=== PATIENT | female | born 1930 | race Caucasian/White ===

== ENCOUNTER 2018-01-22 11:12 | Inpatient (IN) | payer MEDICARE, MEDICAID ==
--- NOTE | 2018-01-22 11:47 | ED Physician Chart ---
ED Chief Complaint/HPI - Patient Information Date Seen:: 01/22/18 Time Seen:: 11:45 Chief Complaint:: GENERALIZED WEAKNESS ABNORMAL LABS History of Present Illness:: THE PATIENT IS NONCOMMUNICATIVE AND UNABLE TO PROVIDE ANY FURTHER INFORMATION EMS WHO BROUGHT THE PATIENT TO THE HOSPITAL AND THE WERE OUR ONLY SOURCE OF INFORMATION. Allergies:: Allergies Allergy/AdvReac Type Severity Reaction Status Date / Time No Known Allergies Allergy Verified 01/22/18 11:22 THIS 87 YEAR OLD FEMALE WAS SENT TO THE [facility]ICE FOR ALTED MENTAL STATS . PT SEEMS AWAKE AND ALERT AD. Vitals:: Vital Signs - 8 hr 01/22/18 11:23 Temp 97.5 F HR 87 RR 18 BP 164/85 O2 Sat % 97 Historian:: EMS Review:: Nurse's Note Reviewed, Transfer documents Reviewed, Patient unable to respond, No other information ED Review of Systems - Review of Systems General/Constitutional: No fever, No chills, Other (UNABLE TO OBTAINDID YOU LACK COMMUNICATION.) Skin: No skin lesions, No bruising Head: No headache, No light-headedness Eyes: No loss of vision ENT: No earache, No sore throat Neck: No stiffness Cardio Vascular: No PND Pulmonary: No SOB, No cough, No sputum GI: No nausea, No vomiting, No diarrhea, No pain, No melena, No hematochezia, No constipation, No hematemesis G/U: No dysuria, No frequency, No hematuria ED Physical Exam - Physical Examination General/Constitutional: Awake, Well-developed, well-nourished, Alert, No distress, Non-toxic appearing, Ambulatory Head: Atraumatic Eyes: Lids, conjuctiva normal, PERRL Other Eyes comments:: PATIENT UNABLE TO UNDERSTANDTHE EOM EXAMINATION. Skin: No rash, No skin lesions, No ecchymosis, No lymphadenopathy ENMT: TM canals nl, Nasal exam nl, Tonsils nl Other ENMT comments:: REDENTOR'S WITH NO PLATES. Neck: No JVD, No nuchal rigidity, No mass, No stridor Respiratory: Nl effort/Exclusion, Clear to Auscultation, No Wheeze/Rhonchi/Rales Cardio Vascular: RRR, No murmur, gallop, rubs, NL S1 S2, Carotid/Femoral/Distal pulses equal bilaterally GI: No organomegaly, No hernia, Normal BS's : No CVA tenderness, No discharge Extremities: No tenderness or effusion, Full ROM, No edema, Normal digits & nails Other Extremities comments:: GENERALIZED WEAKNESS THROUGHOUT THE PATIENTS BODY. Neuro/Psych: Mood normal ED Labs/Radiology/EKG Results - Lab Results Results: Laboratory Tests 01/22/18 01/22/18 12:54 12:54 Whole Bld Lactic Acid 1.13 Troponin I 0.01 THE UA FROM 01/23/2028 SHOWED MANY BACTERIA THE LACTIC ACID WAS LESS THAN 2 NO OTHER LAB DATA IS AVAILALE. ED Assessment - Assessment General Assessment: THIS 87 YEAR OLD FEMALE WAS TRANSFERRED TO THE ER FROM HER NURSING FACILITY. SHE WAS NONCOMUNICAL HER [HYSICAL EXAM WAS UNREMARKABLE AND SHE HAD MANY BCTERIA IN HER URINE. SHE WAS TREATED WITH 2 GRAMS OF CEFTRIAXONE AND IV FLUIDS. SHE WAS ADMITTED TO DR RICHTER'S SERVICE WITH A DX of GENERALIZEDWEEKNESS SECONDAR TO A URI IN STABLE CONDITION. ED Septic Shock - . Is Septic Shock (SBP<90, OR Lactate>4 mmol\L) present?: No - <6hrs of presentation: Vital Signs: Vital Signs - 8 hr 01/22/18 11:23 Temp 97.5 F HR 87 RR 18 BP 164/85 O2 Sat % 97 ED Reassessment (Disposition) - Reassessment Reassessment Condition:: Unchanged, Improved - Diagnosis Diagnosis:: GENERALIZED WEAKNESS, URINARY TRACT INFECTION. - Aftercare/Follow up Instructions Aftercare/Follow-Up Instructions:: Counseled pt & family regarding lab results/ diagnosis & need follow up - Patient Disposition Discharge/Transfer:: Acute Care w/in this hosp ED Discharge Plan - Patient Disposition Admit/Discharge/Transfer: Other Care w/in this hosp
[2018-01-22] MEDS ORDERED: Sodium Chloride 0.9% 2,000 ML IV ONE (14:09)
[2018-01-22 14:58] LABS: URINE MICROSCOPIC INDICATED? YES; URINE SOURCE RANDOM
[2018-01-22 14:59] LABS: URINE BILIRUBIN NEGATIVE (NEGATIVE); URINE BLOOD TRACE (NEGATIVE); URINE GLUCOSE (UA) NEGATIVE (NEGATIVE); URINE KETONE NEGATIVE (NEGATIVE); URINE LEUKOCYTE ESTERASE NEGATIVE (NEGATIVE); URINE NITRATE POSITIVE (NEGATIVE); URINE PROTEIN NEGATIVE (NEGATIVE); URINE UROBILINOGEN 0.2 E.U./dL (0.2 - 1.0)
[2018-01-22 15:04] LABS: URINE CLARITY CLOUDY (CLEAR); URINE COLOR STRAW
[2018-01-22 15:06] LABS: % BASOPHILS 0.2 % (0.0-2.0); % EOSINOPHILS 3.1 % (0.0-5.0); % LYMPHOCYTES 23.6 % (20.0-50.0); % NEUTROPHILS 64.1 % (40.0-80.0); EOSINOPHILE ABSOLUTE 0.2 Th/cmm (0.1-0.4); HEMATOCRIT 43.1 % (41.0-60); HEMOGLOBIN 14.1 gm/dL (12-16); LYMPHOCYTE ABSOLUTE 1.2 Th/cmm (1.5-3.0); MEAN CELL VOLUME 90.4 fl (81-100); MEAN CORPUSCULAR HEMOGLOBIN 29.6 pg (27.0-31.0); MEAN CORPUSCULAR HGB CONC 32.8 pg (28.0-36.0); MEAN PLATELET VOLUME 9.3 fl; MONOCYTE ABSOLUTE 0.5 Th/cmm (0.3-1.0); NEUTROPHILE ABSOLUTE 3.3 Th/cmm (1.8-8.0); PLATELET COUNT 194 Th/cmm (150-400); RED BLOOD COUNT 4.77 Mil/cmm (3.80-5.20); RED CELL DISTRIBUTION WIDTH 15.3 % (11.5-20.0); WHITE BLOOD COUNT 5.2 Th/cmm (4.8-10.8)
[2018-01-22 15:08] LABS: URINE BACTERIA MODERATE /hpf (NONE SEEN); URINE EPITHELIAL CELLS NONE SEEN /lpf (FEW); URINE RBC 0-2 /hpf (0-5); URINE WBC NONE SEEN /hpf (0-5)
[2018-01-22 15:09] LABS: URINE AMORPHOUS SEDIMENT MANY PHOSPHATES (NONE SEEN)
[2018-01-22 15:15] LABS: ALB/GLOB RATIO 1.6 (1.0-1.8); ALBUMIN 3.9 gm/dL (3.7-5.3); ALKALINE PHOSPHATASE 85 U/L (34-104); ANION GAP 11.1 (7.0-16.0); BILIRUBIN,TOTAL 0.4 mg/dL (0.3-1.0); BUN - UREA NITROGEN 32 mg/dL (7-25); CALCIUM SERUM 9.3 mg/dL (8.6-10.3); CARBON DIOXIDE 27.1 mEq/L (21.0-31.0); CHLORIDE 106 mEq/L (98-107); CREATININE - SERUM 0.9 mg/dL (0.6-1.2); GLUCOSE 86 mg/dL (70-105); POTASSIUM SERUM 4.2 mEq/L (3.5-5.1); SGOT 23 U/L (13-39); SGPT/ALT 16 U/L (7-52); SODIUM SERUM 140 mEq/L (136-145); TOTAL PROTEIN,SERUM 6.4 gm/dL (6.0-8.3)
[2018-01-22] MEDS ORDERED: Maalox 30 mL Cup PO PRN (17:07)
[2018-01-22] MEDS ORDERED: Magnesium Hydroxide (MOM) 30 mL UDC PO PRN (17:07)
[2018-01-22 18:39] VITALS: BP 121/70
[2018-01-23] MEDS: Multivitamin Tab PO SCH (09:52)
[2018-01-23] MEDS ORDERED: Haloperidol Lactate 5 mg/mL 1mL Vial IM ONE (13:30)
[2018-01-23] MEDS ORDERED: Haloperidol Lactate 5 mg/mL 1mL Vial ONE (13:32)
--- NOTE | 2018-01-23 22:02 | History & Physical ---
ADMIT DATE: 01/22/2018 CHIEF COMPLAINT: Painful urination, severe weakness, and confusion. HISTORY OF PRESENT ILLNESS: The patient is an 87-year-old female admitted from Emergency Room to [facility]. The patient started to complain of severe weakness, lower abdominal pain with dysuria and the labs revealed urinary tract infection. The patient has failure to thrive, poor p.o. intake at the long-term and she is definitely more confused than her baseline status. Additionally, the patient also had acute psychosis. The patient is therefore admitted to Geropsych Unit. In the Emergency Room, the patient's UA revealed moderate bacteria, positive nitrite. Urine culture ordered and empiric antibiotics started which will be adjusted accordingly. PAST MEDICAL HISTORY: Including anxiety, depression, Alzheimer disease, insomnia, degenerative disk disease and mild psychosis. REVIEW OF SYSTEMS: Cannot be reliably obtained. PHYSICAL EXAMINATION: GENERAL: Well-developed female in no acute distress. SKIN: Warm and dry. VITAL SIGNS: Basically stable. HEENT: Normocephalic, atraumatic. Pupils equal, round, react to light and accommodation. CHEST: Symmetrical. LUNGS: Clear to auscultation bilaterally. HEART: Normal sinus rhythm, S1 __. ABDOMEN: Benign, soft, nontender. EXTREMITIES: No clubbing, cyanosis, edema bilaterally, 2+. NEUROLOGIC: Unremarkable. LABORATORY DATA: Reviewed. ASSESSMENT AND PLAN: 1. Urinary tract infection: Urine C and S ordered, empiric antibiotics started, which will be adjusted accordingly. 2. Altered level of consciousness due to metabolic encephalopathy and dementia. 3. Acute psychosis: Psychiatry consultation requested and greatly appreciated. 4. Failure to thrive: Multifactorial. Workup in progress. 5. Alzheimer disease: Continue Aricept. 6. Agitation and anxiety: Observe closely. Adjust medication as needed. 7. Gastroesophageal reflux disease: We will adjust medications as needed. 8. Deep venous thrombosis prophylaxis. [facility]# [id number]
--- NOTE | 2018-01-24 04:51 | Psychosocial Evaluation ---
DATE OF SERVICE: 01/23/2018 PSYCHIATRIC INITIAL EVALUATION AND MENTAL STATUS EXAM AGE: 87. SEX: Female. PHYSICIAN: Dr. Galindo. CHIEF COMPLAINT: Altered level of consciousness and confusion. HISTORY OF PRESENT ILLNESS: The patient is an 87-year-old female who was transferred to the hospital from [facility] because of confusion and episodes of agitation. The patient has diagnosis of dementia as well as hypertension. The patient also found to have urinary tract infection and she started on Rocephin. The patient is apparently confused. She does not know where she is. She also at times seems to be talking to herself in Australian language. The patient also has episodes of irritability and anger. The patient is also cooperative in regard to taking her medications. PAST PSYCHIATRIC HISTORY: The patient has a history of dementia, but no other major psychiatric issues or problems. PAST MEDICAL HISTORY: The patient has currently urinary tract infection. SOCIAL HISTORY: The patient lives in [facility]. No known alcohol or street drug use. ALLERGIES: No known allergies. MENTAL STATUS EXAMINATION: The patient appears her stated age. Anxious. Confused. Mumbling and talking to herself in Australian language and difficulty to understand directions or instructions. The patient is alert, but disoriented to time, place, person and situation and she could not even know her date. Poor insight and poor judgment. ASSESSMENT: PRIMARY DIAGNOSIS: Unspecified psychosis. SECONDARY DIAGNOSIS: Dementia, moderate to severe, with psychotic features. TREATMENT PLAN: We will monitor the patient's behavior and condition closely. Also, start the patient on Aricept and will adjust the dose. ESTIMATED LENGTH OF STAY: 5-7 days. TREATMENT PLAN: Continue to monitor her behavior. Also, we will return her to [place] when medically stable. CRITERIA FOR DISCHARGE: The patient will not be agitated or psychotic and will stabilize psychotropic medications and will establish outpatient treatment plans. [facility]# [id number]
[2018-01-24] MEDS: Sulfamethoxazole/TMP 800/160mg Tab PO SCH ×2 (10:56→17:35)
[2018-01-24] MEDS ORDERED: Probiotic Screen MC PRN (12:01)
--- NOTE | 2018-01-24 13:35 | Progress Notes ---
DATE: 01/23/2018 SUBJECTIVE: The patient is somewhat confused, afebrile. OBJECTIVE: VITAL SIGNS: Basically stable. HEENT: Normocephalic, atraumatic. Pupils equal, round, react to light and accommodation. CHEST: Symmetrical. LUNGS: Clear to auscultation bilaterally. HEART: Normal sinus rhythm. S1, S2. ABDOMEN: Benign, soft, nontender. EXTREMITIES: No clubbing, cyanosis or edema. Bilaterally 2+ equally. NEUROLOGIC: Unremarkable. LABORATORY AND DIAGNOSTIC DATA: Lab reviewed. ASSESSMENT AND PLAN: 1. Urinary tract infection: Pending final culture result. Empiric antibiotics started which will be adjusted accordingly. 2. Altered level of consciousness due to metabolic encephalopathy and dementia. 3. Alzheimer disease: Continue Aricept. 4. Psychosis: Adjust medication. 5. Anxiety: Observe closely. 6. Failure to thrive: Workup in progress. 7. Difficulty walking: Fall precaution and physical therapy. 8. DVT prophylaxis. JOB# [id number]
[2018-01-24] MEDS: Lactobacillus Rhamnosus GG 15 Billion CFU CAP.SPRINK PO SCH (17:33)
[2018-01-24] MEDS: Multivitamin Tab PO SCH (17:33)
--- NOTE | 2018-01-25 08:16 | Progress Notes ---
DATE: SUBJECTIVE: Chart reviewed and the patient interviewed. Also discussed the patient's condition with the staff and reviewed records and labs. The patient continued to be in angry and in irritable mood. The patient also is easily agitated and easily irritable. Yesterday, the patient was yelling and screaming at staff and the patient was threatening staff and aggressive and was not able to follow any of the directions. The patient had to be given Haldol, Ativan and Benadryl on emergency basis in order to calm her down. The patient is still irritable and agitated. ASSESSMENT: The patient is still confused and is still agitated and can be dangerous to others. TREATMENT PLAN: Continue to monitor her behavior and her condition closely. Also, we will start Seroquel in a dose of 12.5 mg twice a day and we will continue to follow up closely. JOB# [id number]
[2018-01-25] MEDS: Sulfamethoxazole/TMP 800/160mg Tab PO SCH ×2 (09:00→16:44)
[2018-01-25] MEDS: Multivitamin Tab PO SCH (09:25)
[2018-01-25] MEDS: Lactobacillus Rhamnosus GG 15 Billion CFU CAP.SPRINK PO SCH (09:25)
[2018-01-25] MEDS ORDERED: Haloperidol Lactate 5 mg/mL 1mL Vial IM ONE (10:00)
[2018-01-25] MEDS ORDERED: Haloperidol Lactate 5 mg/mL 1mL Vial ONE (14:40)
--- NOTE | 2018-01-25 23:33 | Progress Notes ---
DATE: 01/24/2018 SUBJECTIVE: The patient is confused, agitated from time to time. OBJECTIVE: VITAL SIGNS: Basically stable. HEENT: Normocephalic and atraumatic. Pupils equal, round, and react to light and accommodation. CHEST: Symmetrical. LUNGS: Few wheezing appreciated. HEART: Normal sinus rhythm, S1 and S2. ABDOMEN: Benign, soft, and nontender. EXTREMITIES: No clubbing, cyanosis, or edema ____. NEUROLOGICAL: Unremarkable. LABORATORY DATA: Reviewed as seen from the computer. ASSESSMENT AND PLAN: 1. Altered level of consciousness due to metabolic encephalopathy and dementia, we will observe her closely. 2. Urinary tract infection. Continue antibiotic. We will adjust accordingly. 3. Alzheimer disease. Continue Aricept. 4. Anxiety, improving. 5. Psychosis. Adjust medication. 6. Failure to thrive. 7. Difficulty walking, fall precaution and physical therapy. 8. DVT prophylaxis. JOB# [id number]
--- NOTE | 2018-01-26 02:25 | Progress Notes ---
DATE: SUBJECTIVE: Chart reviewed and the patient interviewed. Also discussed the patient's condition with the staff and reviewed the records and labs. The patient is still confused and she is only oriented to herself. The patient also needs lots of redirections. The patient also has been easily agitated. She also forgetful and argumentative. On the other hand, the patient is slightly easier to redirect her. She also started on Seroquel. ASSESSMENT: The patient is still confused and is still having episodes of agitation. TREATMENT PLAN: We will continue to monitor her behavior and her condition closely. Also, we will work on the patient's irritability and the patient's agitation. The patient also will need lots of close monitoring. JOB# [id number]
[2018-01-26] MEDS: Sulfamethoxazole/TMP 800/160mg Tab PO SCH ×2 (10:00→16:48)
[2018-01-26] MEDS: Lactobacillus Rhamnosus GG 15 Billion CFU CAP.SPRINK PO SCH (10:00)
[2018-01-26] MEDS: Multivitamin Tab PO SCH (10:00)
--- NOTE | 2018-01-27 01:52 | Progress Notes ---
DATE: SUBJECTIVE: Chart reviewed and the patient interviewed. Also discussed the patient's condition with the staff and reviewed records and labs. The patient is still in a depressed mood and she is still withdrawn. The patient also is easily agitated and wants to be left alone; trying to approach the patient for support therapy or talking to her, she gets more agitated and restless. The patient also is forgetful and she is still depressed. Otherwise, slightly easier to redirect her and she is compliant with taking her medications. ASSESSMENT: The patient is still psychotic and agitated as well as depressed. TREATMENT PLAN: Continue Seroquel and Aricept at same dose. Continue to monitor behavior and continue to follow up closely. [facility]# [id number]
[2018-01-27] MEDS: Sulfamethoxazole/TMP 800/160mg Tab PO SCH ×2 (09:30→17:41)
[2018-01-27] MEDS: Multivitamin Tab PO SCH (09:30)
[2018-01-27] MEDS: Lactobacillus Rhamnosus GG 15 Billion CFU CAP.SPRINK PO SCH (09:30)
--- NOTE | 2018-01-27 19:58 | Progress Notes ---
DATE: 01/27/2018 SUBJECTIVE: The patient in the hospital, transferred from [facility] because of confusion episodes of agitation, history of dementia. On [id number], the patient remains very confused, disoriented. Dr. Galindo seeing the patient over the past couple of days, noting that she was depressed, withdrawn, easily agitated, still unruly at times. Staff noting patient did sleep during the night, drafting technician awakenings, still confused, disoriented, episodes of irritability. The patient highly disoriented. Medications were noted. No overt side effects. PLAN: We will continue to monitor. The patient remains symptomatic, still at times in a Nelda chair. JOB# [id number]
[2018-01-28] MEDS: Sulfamethoxazole/TMP 800/160mg Tab PO SCH ×2 (08:44→16:45)
[2018-01-28] MEDS: Multivitamin Tab PO SCH (08:45)
[2018-01-28] MEDS: Lactobacillus Rhamnosus GG 15 Billion CFU CAP.SPRINK PO SCH (08:45)
--- NOTE | 2018-01-29 02:24 | Progress Notes ---
DATE: 01/28/2018 SUBJECTIVE: The patient transferred from [facility] due to confusion, agitation, disorientation. The patient withdrawn, easily agitated, at times unruly, mason liner awakenings. The patient is confused on exam per staff, slept for about 6 hours. No distress, confused, forgetful, still requiring a lot of redirection, prompting ASSESSMENT: The patient remains symptomatic, impulsive, unpredictable, still agitated, irritable, and confused. Medications were noted. PLAN: We will continue to monitor. Continue to adjust and titrate medications. Given her ongoing behaviors, she is not safe for a lower level of care at this time. JOB# [id number]
[2018-01-29 07:22] LABS: % BASOPHILS 0.5 % (0.0-2.0); % EOSINOPHILS 4.1 % (0.0-5.0); % LYMPHOCYTES 25.5 % (20.0-50.0); % MONOCYTES 9.5 % (2.0-10.0); % NEUTROPHILS 60.4 % (40.0-80.0); EOSINOPHILE ABSOLUTE 0.2 Th/cmm (0.1-0.4); HEMATOCRIT 41.2 % (41.0-60); HEMOGLOBIN 13.9 gm/dL (12-16); LYMPHOCYTE ABSOLUTE 1.4 Th/cmm (1.5-3.0); MEAN CELL VOLUME 90.7 fl (81-100); MEAN CORPUSCULAR HEMOGLOBIN 30.6 pg (27.0-31.0); MEAN CORPUSCULAR HGB CONC 33.7 pg (28.0-36.0); MONOCYTE ABSOLUTE 0.5 Th/cmm (0.3-1.0); NEUTROPHILE ABSOLUTE 3.2 Th/cmm (1.8-8.0); PLATELET COUNT 244 Th/cmm (150-400); RED BLOOD COUNT 4.54 Mil/cmm (3.80-5.20); RED CELL DISTRIBUTION WIDTH 14.8 % (11.5-20.0); WHITE BLOOD COUNT 5.3 Th/cmm (4.8-10.8)
[2018-01-29 07:34] LABS: ANION GAP 10.4 (7.0-16.0); BUN - UREA NITROGEN 29 mg/dL (7-25); CALCIUM SERUM 9.2 mg/dL (8.6-10.3); CARBON DIOXIDE 26.6 mEq/L (21.0-31.0); CHLORIDE 104 mEq/L (98-107); CREATININE - SERUM 1.3 mg/dL (0.6-1.2); GLUCOSE 87 mg/dL (70-105); SODIUM SERUM 137 mEq/L (136-145)
[2018-01-29] MEDS: Sulfamethoxazole/TMP 800/160mg Tab PO SCH (09:28)
[2018-01-29] MEDS: Multivitamin Tab PO SCH (09:30)
[2018-01-29] MEDS: Lactobacillus Rhamnosus GG 15 Billion CFU CAP.SPRINK PO SCH (09:30)
--- NOTE | 2018-01-29 22:17 | Progress Notes ---
DATE: 01/28/2018 SUBJECTIVE: The patient is confused, agitated from time to time. OBJECTIVE: VITAL SIGNS: Stable. HEENT: Normocephalic, atraumatic. Pupils equal, round, react to light and accommodation. CHEST: Symmetrical. LUNGS: Clear to auscultation bilaterally. CARDIAC: Normal sinus rhythm. S1, S2. ABDOMEN: Benign, soft, nontender. EXTREMITIES: No clubbing, cyanosis, edema . NEUROLOGIC: Unremarkable. ASSESSMENT AND PLAN: 1. Altered level of consciousness due to metabolic encephalopathy and dementia. We will observe closely. 2. Agitation, slightly improving. 3. Acute psychosis: Adjust medications as needed. 4. Failure to thrive. 5. Urinary tract infection, improving. 6. Severe weakness: Fall precaution and physical therapy. 7. Difficulty walking: Physical therapy. 8. Deep venous thrombosis prophylaxis. JOB# [id number]
--- NOTE | 2018-01-29 22:45 | Progress Notes ---
DATE: 01/29/[address] Galindo. Case was discussed with staff of the patient, reviewed records. This is an 87-year-old female who was admitted on 01/22/2018 because of confusion, altered level of consciousness. The patient came from [facility] because of confusion as well as agitation. The patient with a history of dementia, hypertension, very poor historian, unable to participate in a conversation with a history of major depression and urinary tract infection. The patient continues to be confused, irritable, continues to be unable to make safe plan for self-care. Continues to have episodes of agitation, irritability. Dr. Galindo started her on Seroquel 12.5 mg twice a day and Aricept 5 mg at bedtime with no side effects, no sedation, no nausea. Urine culture is pending and we will continue to work with the patient in group therapy and milieu therapy and adjust the medication as needed. JOB# [id number]
[2018-01-30] MEDS: Lactobacillus Rhamnosus GG 15 Billion CFU CAP.SPRINK PO SCH (09:53)
[2018-01-30] MEDS: Multivitamin Tab PO SCH (09:53)
--- NOTE | 2018-01-30 20:30 | Progress Notes ---
DATE: 01/30/2018 SUBJECTIVE: Case was discussed with staff of the patient, reviewed records. The patient continues to be unpredictable, impulsive, confused. Continues to have poor insight. Continues to be unable to make safe plan for self-care. She is demented. She is compliant with the medication with no side effects, no sedation, no nausea, no extrapyramidal symptoms. We will continue the patient in group therapy and milieu therapy and adjust the medications as needed. JOB# [id number]
--- NOTE | 2018-01-30 23:59 | Consultation ---
Consult Note - Consult Note Service Date: 01/30/18 Consult Note: PHYSICIAN Consultation Note: Date of Admission: 01/22/18 Purpose of Consultation: Chief Complaint: History of Present Illness: Patient JOSE MORENO was admitted to [facility] with PSYCHOSIS. Past Medical History: Diagnoses DEMENTIA IN OTH DISEASES CLASSD ELSWHR W/O BEHAVRL DISTURB (01/22/18) UNSPECIFIED DEMENTIA WITH BEHAVIORAL DISTURBANCE (01/22/18) BRIEF PSYCHOTIC DISORDER (01/22/18) METABOLIC ENCEPHALOPATHY (01/22/18) GASTRO-ESOPHAGEAL REFLUX DISEASE WITHOUT ESOPHAGITIS (01/22/18) URINARY TRACT INFECTION, SITE NOT SPECIFIED (01/22/18) TRANSIENT ALTERATION OF AWARENESS (01/22/18) ADULT FAILURE TO THRIVE (01/22/18) Allergies Allergy/AdvReac Type Severity Reaction Status Date / Time No Known Allergies Allergy Verified 01/22/18 11:22 Vital Signs Temp 97.6 F 01/30/18 20:00 Pulse 84 01/30/18 20:00 Resp 19 01/30/18 20:00 BP 110/71 01/30/18 20:00 Pulse Ox 96 01/30/18 20:00 Intake & Output 01/30/18 01/30/18 01/31/18 06:59 18:59 06:59 Intake Total 360 800 Balance 360 800 Intake: Oral 360 800 Other: # Voids 1 3 # Bowel Movements 0 1 Home Medication Medication Instructions Recorded Type Acetaminophen [Tylenol Extra 2 tab PO Q4HR PRN MDD NTE 3GM/24 H 01/22/18 History Strength] Acetaminophen [Tylenol] 2 tab PO Q4HR PRN MDD NTE 3GM/24 H 01/22/18 History Bisacodyl [Dulcolax 10 Mg Supp] 1 sup DAILY PRN 01/22/18 History Divalproex Sodium [Depakote ER] 1 tab PO HS 01/22/18 History Donepezil Hcl [Aricept] 1 tab PO DAILY 01/22/18 History Fleet Enema 1 unit Q2D PRN 01/22/18 History Guaifenesin DM [Robitussin DM] 10 ml PO Q6H PRN 01/22/18 History Magnesium Hydroxide [Milk of 1 cup PO DAILY PRN 01/22/18 History Magnesia] Melatonin 1 tab PO HS 01/22/18 History Memantine [Namenda] 1 tab PO BID 01/22/18 History Valsartan 1 tab PO BID 01/22/18 History amLODIPine Besylate [Norvasc] 1 tab PO DAILY 01/22/18 History Current Medications Generic Name Dose Route Start Last Admin Trade Name Freq PRN Reason Stop Dose Admin Acetaminophen 650 mg 01/22/18 17:07 Tylenol PO 03/23/18 17:06 Q4HR PRN Mild Pain / Temp above 100 Al Hydrox/Mg Hydrox/Simethicone 30 ml 01/22/18 17:07 Maalox PO 03/23/18 17:06 Q4HR PRN GI DISTRESS Donepezil HCl 5 mg 01/23/18 09:00 01/30/18 09:53 Aricept PO 03/24/18 08:59 5 mg DAILY MARILYN Administration Lactobacillus Rhamnosus 1 each 01/24/18 14:00 01/30/18 09:53 Culturelle 15b PO 03/25/18 13:59 1 each DAILY MARILYN Administration Lorazepam 0.5 mg 01/22/18 17:07 01/29/18 21:04 Ativan PO 02/21/18 17:06 0.5 mg Q4HR PRN Administration Anxiety Protocol Magnesium Hydroxide 30 ml 01/22/18 17:07 Milk Of Magnesia PO HS PRN Constipation Miscellaneous 1 ea 01/24/18 12:01 Probiotic Screen MC 03/25/18 12:00 PRN PRN PROTOCOL Multivitamins/Vitamin C 1 tab 01/23/18 09:00 01/30/18 09:53 Theragran PO 03/24/18 08:59 1 tab DAILY MARILYN Administration Quetiapine Fumarate 12.5 mg 01/24/18 09:00 01/30/18 16:47 Seroquel PO 03/25/18 08:59 12.5 mg BID MARILYN Administration Protocol Zolpidem Tartrate 5 mg 01/22/18 17:07 01/29/18 21:04 Ambien PO 03/23/18 17:06 5 mg HS PRN Administration Insomnia Review of Systems: A 12 point ROS was reviewed with the pertinent positive and negatives noted in the HPI. Social History Smoking Status Never smoker Physical Exam: VSS General: NAD, confused,agitated sometime. HEENT: NCAT, PERRLA Neck: supple, no JVD, no LAD, no TM Cardio: NSR, S1,S2 Respiratory: CTAB Abdominal: Benigh, BS+, no HSM, no peritoneal signs. Genital/Urinary: WNL Extremities: wnl Neurological: unremarkable; non-focal. Assessment: POOJA: try to avoid nephrotocic meds. ALOC: on and off, observe. Agitation: improving. UTI: resolving? Acute psychosis: adjusting meds. Weakness: fall precaution. Plan: Signed, Jem Rowland 01/30/286655
[2018-01-31 08:33] LABS: ANION GAP 10.1 (7.0-16.0); BUN - UREA NITROGEN 27 mg/dL (7-25); CALCIUM SERUM 9.9 mg/dL (8.6-10.3); CARBON DIOXIDE 27.9 mEq/L (21.0-31.0); CHLORIDE 102 mEq/L (98-107); GLUCOSE 91 mg/dL (70-105); SODIUM SERUM 136 mEq/L (136-145)
[2018-01-31] MEDS: Multivitamin Tab PO SCH (09:14)
[2018-01-31] MEDS: Lactobacillus Rhamnosus GG 15 Billion CFU CAP.SPRINK PO SCH (09:15)
--- NOTE | 2018-01-31 22:53 | Internal Medicine Prog Note ---
Internal Medicine Subjective - Subjective Service Date: 01/31/18 Patient seen and examined:: without staff, chart reviewed Patient is:: awake, non-verbal, non-interactive, in bed Per staff patient has:: no adverse event Internal Medicine Objective - Results Result Diagrams: 01/29/18 07:05 01/31/18 07:49 Recent Labs: Laboratory Last Values WBC 5.3 Th/cmm (4.8-10.8) 01/29/18 07:05 RBC 4.54 Mil/cmm (3.80-5.20) 01/29/18 07:05 Hgb 13.9 gm/dL (12-16) 01/29/18 07:05 Hct 41.2 % (41.0-60) 01/29/18 07:05 MCV 90.7 fl (81-100) 01/29/18 07:05 MCH 30.6 pg (27.0-31.0) 01/29/18 07:05 MCHC Differential 33.7 pg (28.0-36.0) 01/29/18 07:05 RDW 14.8 % (11.5-20.0) 01/29/18 07:05 Plt Count 244 Th/cmm (150-400) 01/29/18 07:05 MPV 8.0 fl 01/29/18 07:05 Neutrophils % 60.4 % (40.0-80.0) 01/29/18 07:05 Lymphocytes % 25.5 % (20.0-50.0) 01/29/18 07:05 Monocytes % 9.5 % (2.0-10.0) 01/29/18 07:05 Eosinophils % 4.1 % (0.0-5.0) 01/29/18 07:05 Basophils % 0.5 % (0.0-2.0) 01/29/18 07:05 Sodium 136 mEq/L (136-145) 01/31/18 07:49 Potassium 4.0 mEq/L (3.5-5.1) 01/31/18 07:49 Chloride 102 mEq/L (98-107) 01/31/18 07:49 Carbon Dioxide 27.9 mEq/L (21.0-31.0) 01/31/18 07:49 Anion Gap 10.1 (7.0-16.0) 01/31/18 07:49 BUN 27 mg/dL (7-25) H 01/31/18 07:49 Creatinine 1.0 mg/dL (0.6-1.2) 01/31/18 07:49 Est GFR ( Amer) TNP 01/31/18 07:49 Est GFR (Non-Af Amer) TNP 01/31/18 07:49 BUN/Creatinine Ratio 27.0 01/31/18 07:49 Glucose 91 mg/dL (70-105) 01/31/18 07:49 Whole Bld Lactic Acid 1.13 mmol/L (0.60-1.99) 01/22/18 12:54 Calcium 9.9 mg/dL (8.6-10.3) 01/31/18 07:49 Total Bilirubin 0.4 mg/dL (0.3-1.0) 01/22/18 12:54 AST 23 U/L (13-39) 01/22/18 12:54 ALT 16 U/L (7-52) 01/22/18 12:54 Alkaline Phosphatase 85 U/L (34-104) 01/22/18 12:54 Troponin I 0.01 ng/mL (0.01-0.05) 01/22/18 12:54 Total Protein 6.4 gm/dL (6.0-8.3) 01/22/18 12:54 Albumin 3.9 gm/dL (3.7-5.3) 01/22/18 12:54 Globulin 2.5 gm/dL 01/22/18 12:54 Albumin/Globulin Ratio 1.6 (1.0-1.8) 01/22/18 12:54 Urine Source RANDOM 01/22/18 14:00 Urine Color STRAW 01/22/18 14:00 Urine Clarity CLOUDY (CLEAR) H 01/22/18 14:00 Urine pH 7.0 (4.6 - 8.0) 01/22/18 14:00 Ur Specific [place] 1.015 (1.005-1.030) 01/22/18 14:00 Urine Protein NEGATIVE mg/dL (NEGATIVE) 01/22/18 14:00 Urine Glucose (UA) NEGATIVE mg/dL (NEGATIVE) 01/22/18 14:00 Urine Ketones NEGATIVE mg/dL (NEGATIVE) 01/22/18 14:00 Urine Blood TRACE (NEGATIVE) 01/22/18 14:00 Urine Nitrate POSITIVE (NEGATIVE) H 01/22/18 14:00 Urine Bilirubin NEGATIVE (NEGATIVE) 01/22/18 14:00 Urine Urobilinogen 0.2 E.U./dL (0.2 - 1.0) 01/22/18 14:00 Ur Leukocyte Esterase NEGATIVE (NEGATIVE) 01/22/18 14:00 Urine RBC 0-2 /hpf (0-5) 01/22/18 14:00 Urine WBC NONE SEEN /hpf (0-5) 01/22/18 14:00 Ur Epithelial Cells NONE SEEN /lpf (FEW) 01/22/18 14:00 Amorphous Sediment MANY PHOSPHATES (NONE SEEN) 01/22/18 14:00 Urine Bacteria MODERATE /hpf (NONE SEEN) H 01/22/18 14:00 - Physical Exam Vitals and I&O: Vital Signs Temp 97.9 F 01/31/18 20:00 Pulse 85 01/31/18 20:00 Resp 19 01/31/18 20:00 BP 106/63 01/31/18 20:00 Pulse Ox 96 01/31/18 20:00 Intake & Output 01/31/18 01/31/18 02/01/18 06:59 18:59 06:59 Intake Total 120 600 Balance 120 600 Intake: Oral 120 600 Other: # Voids 3 2 Active Medications: Current Medications Acetaminophen (Tylenol) 650 mg PO Q4HR PRN PRN Reason: Mild Pain / Temp above 100 Stop: 03/23/18 17:06 Al Hydrox/Mg Hydrox/Simethicone (Maalox) 30 ml PO Q4HR PRN PRN Reason: GI DISTRESS Stop: 03/23/18 17:06 Donepezil HCl (Aricept) 5 mg PO DAILY MARILYN Stop: 03/24/18 08:59 Last Admin: 01/31/18 09:15 Dose: 5 mg Lactobacillus Rhamnosus (Culturelle 15b) 1 each PO DAILY MARILYN Stop: 03/25/18 13:59 Last Admin: 01/31/18 09:15 Dose: 1 each Lorazepam (Ativan) 0.5 mg PO Q4HR PRN; Protocol PRN Reason: Anxiety Stop: 02/21/18 17:06 Last Admin: 01/31/18 09:56 Dose: 0.5 mg Magnesium Hydroxide (Milk Of Magnesia) 30 ml PO HS PRN PRN Reason: Constipation Miscellaneous (Probiotic Screen) 1 ea MC PRN PRN PRN Reason: PROTOCOL Stop: 03/25/18 12:00 Multivitamins/Vitamin C (Theragran) 1 tab PO DAILY MARILYN Stop: 03/24/18 08:59 Last Admin: 01/31/18 09:14 Dose: 1 tab Quetiapine Fumarate (Seroquel) 12.5 mg PO BID MARILYN; Protocol Stop: 03/25/18 08:59 Last Admin: 01/31/18 18:53 Dose: Not Given Zolpidem Tartrate (Ambien) 5 mg PO HS PRN PRN Reason: Insomnia Stop: 03/23/18 17:06 Last Admin: 01/29/18 21:04 Dose: 5 mg General: weak, lethargic, congested, demented HEENT: NC/AT, PERRLA, EOMI, anicteric sclerae, throat clear Neck: No JVD Lungs: CTAB Cardiovascular: RRR Abdomen: soft, non-tender Extremities: clear, edema Neurological: no change Internal Medicine Assmt/Plan - Assessment Assessment: ALOC: on and off; observe. Agitation: better. POOJA: resolving? Failure to thrive: better. Anxiety: close monitoring. Acute psychosis: adjusting meds. UTI: improving. Nutritional Asmnt/Malnutr-PDOC - Dietary Evaluation Malnutrition Findings (Please click <Entered> for more info): Nutritional Asmnt/Malnutrition Start: 01/25/18 15: 04 Text: Status: Complete Freq: Protocol: Document 01/25/18 15:04 LCHENG (Rec: 01/25/18 15:08 LCHENG [email or web address]) Nutritional Asmnt/Malnutrition Patient General Information Diagnosis psychosis Pertinent Medical Hx/Surgical Hx anxiety, depression, alzheimer disease, insomnia, DJD, mild psychosis Subjective Information Pt seen sitting in dinning room eating lunch well. Per EMR, PO intake 50-75%. Current Diet Order/ Nutrition Support regular Pertinent Medications cultruelle, theragran, seroquel Pertinent Labs 01/22 BUN 32 Nutritional Hx/Data Height 1.52 m Height (Calculated Centimeters) 152.4 Current Weight (lbs) 54.431 kg Weight (Calculated Kilograms) 54.4 Weight (Calculated Grams) 11166.1 [place] Body Weight 100 % [place] Body Weight 120 Body Mass Index (BMI) 23.4 Weight Status Approriate GI Symptoms GI Symptoms None Last BM none Difficult in: None Skin Integrity/Comment: intact Estimated Nutritional Goals BEE in Kcals: Using Current wt Calories/Kcals/Kg 25-30 Kcals Calculated 4048-5519 Protein: Using Current wt Protein g/k Protein Calculated 55 Fluid: ml 1375-1650ml (1ml/kcal) Nutritional Problem No current Nutrition Prob Problem N/A Malnutrition Alert Is there a minimum of two criteria No selected? Query Text:Check all the applicable criteria. A minimum of two criteria are recommended for diagnosis of either severe or non-severe malnutrition. Malnutrition Related to Morbid Obesity Malnutrition related to morbid obesity No Intervention/Recommendation Comments 1. Continue with regular diet as ordered. 2. Monitor PO intake, wt, labs and skin integrity 3. F/U as low risk in 7 days, 02/01, PO check 01/29 Expected Outcomes/Goals Expected Outcomes/Goals 1. PO intake to meet at least 75% of nutritional needs. 2. Wt stability, skin to remain intact, labs to approach WNL.
[2018-02-01] MEDS: Multivitamin Tab PO SCH (10:15)
[2018-02-01] MEDS: Lactobacillus Rhamnosus GG 15 Billion CFU CAP.SPRINK PO SCH (10:15)
--- NOTE | 2018-02-01 20:43 | Progress Notes ---
DATE: 01/31/2018 SUBJECTIVE: Chart reviewed and the patient interviewed. Also discussed the patient's condition with the staff and reviewed records and labs. The patient continued to be confused. The patient also is still restless and is easily irritable and easily agitated. The patient also is interacting minimally with others. She also is confused and impulsive. Also, her insight is poor. Otherwise, the patient is compliant with taking her medications with no side effects of medications. ASSESSMENT: The patient is still confused and paranoid. TREATMENT PLAN: Continue to monitor her behavior and her condition closely. Also, continue to work on discharge plans and the placement issue. Also, continue adjusting Seroquel dose and currently she is in 12.5 mg twice a day. [facility]# [id number]
--- NOTE | 2018-02-01 22:36 | Internal Medicine Prog Note ---
Internal Medicine Subjective - Subjective Service Date: 02/01/18 Patient is:: awake, non-verbal, non-interactive, in bed Per staff patient has:: no adverse event Internal Medicine Objective - Results Result Diagrams: 01/29/18 07:05 01/31/18 07:49 Recent Labs: Laboratory Last Values WBC 5.3 Th/cmm (4.8-10.8) 01/29/18 07:05 RBC 4.54 Mil/cmm (3.80-5.20) 01/29/18 07:05 Hgb 13.9 gm/dL (12-16) 01/29/18 07:05 Hct 41.2 % (41.0-60) 01/29/18 07:05 MCV 90.7 fl (81-100) 01/29/18 07:05 MCH 30.6 pg (27.0-31.0) 01/29/18 07:05 MCHC Differential 33.7 pg (28.0-36.0) 01/29/18 07:05 RDW 14.8 % (11.5-20.0) 01/29/18 07:05 Plt Count 244 Th/cmm (150-400) 01/29/18 07:05 MPV 8.0 fl 01/29/18 07:05 Neutrophils % 60.4 % (40.0-80.0) 01/29/18 07:05 Lymphocytes % 25.5 % (20.0-50.0) 01/29/18 07:05 Monocytes % 9.5 % (2.0-10.0) 01/29/18 07:05 Eosinophils % 4.1 % (0.0-5.0) 01/29/18 07:05 Basophils % 0.5 % (0.0-2.0) 01/29/18 07:05 Sodium 136 mEq/L (136-145) 01/31/18 07:49 Potassium 4.0 mEq/L (3.5-5.1) 01/31/18 07:49 Chloride 102 mEq/L (98-107) 01/31/18 07:49 Carbon Dioxide 27.9 mEq/L (21.0-31.0) 01/31/18 07:49 Anion Gap 10.1 (7.0-16.0) 01/31/18 07:49 BUN 27 mg/dL (7-25) H 01/31/18 07:49 Creatinine 1.0 mg/dL (0.6-1.2) 01/31/18 07:49 Est GFR ( Amer) TNP 01/31/18 07:49 Est GFR (Non-Af Amer) TNP 01/31/18 07:49 BUN/Creatinine Ratio 27.0 01/31/18 07:49 Glucose 91 mg/dL (70-105) 01/31/18 07:49 Whole Bld Lactic Acid 1.13 mmol/L (0.60-1.99) 01/22/18 12:54 Calcium 9.9 mg/dL (8.6-10.3) 01/31/18 07:49 Total Bilirubin 0.4 mg/dL (0.3-1.0) 01/22/18 12:54 AST 23 U/L (13-39) 01/22/18 12:54 ALT 16 U/L (7-52) 01/22/18 12:54 Alkaline Phosphatase 85 U/L (34-104) 01/22/18 12:54 Troponin I 0.01 ng/mL (0.01-0.05) 01/22/18 12:54 Total Protein 6.4 gm/dL (6.0-8.3) 01/22/18 12:54 Albumin 3.9 gm/dL (3.7-5.3) 01/22/18 12:54 Globulin 2.5 gm/dL 01/22/18 12:54 Albumin/Globulin Ratio 1.6 (1.0-1.8) 01/22/18 12:54 Urine Source RANDOM 01/22/18 14:00 Urine Color STRAW 01/22/18 14:00 Urine Clarity CLOUDY (CLEAR) H 01/22/18 14:00 Urine pH 7.0 (4.6 - 8.0) 01/22/18 14:00 Ur Specific [place] 1.015 (1.005-1.030) 01/22/18 14:00 Urine Protein NEGATIVE mg/dL (NEGATIVE) 01/22/18 14:00 Urine Glucose (UA) NEGATIVE mg/dL (NEGATIVE) 01/22/18 14:00 Urine Ketones NEGATIVE mg/dL (NEGATIVE) 01/22/18 14:00 Urine Blood TRACE (NEGATIVE) 01/22/18 14:00 Urine Nitrate POSITIVE (NEGATIVE) H 01/22/18 14:00 Urine Bilirubin NEGATIVE (NEGATIVE) 01/22/18 14:00 Urine Urobilinogen 0.2 E.U./dL (0.2 - 1.0) 01/22/18 14:00 Ur Leukocyte Esterase NEGATIVE (NEGATIVE) 01/22/18 14:00 Urine RBC 0-2 /hpf (0-5) 01/22/18 14:00 Urine WBC NONE SEEN /hpf (0-5) 01/22/18 14:00 Ur Epithelial Cells NONE SEEN /lpf (FEW) 01/22/18 14:00 Amorphous Sediment MANY PHOSPHATES (NONE SEEN) 01/22/18 14:00 Urine Bacteria MODERATE /hpf (NONE SEEN) H 01/22/18 14:00 - Physical Exam Vitals and I&O: Vital Signs Temp 97.0 F 02/01/18 14:00 Pulse 87 02/01/18 14:00 Resp 18 02/01/18 14:00 BP 116/62 02/01/18 14:00 Pulse Ox 98 02/01/18 14:00 Intake & Output 02/01/18 02/01/18 02/02/18 06:59 18:59 06:59 Intake Total 120 1100 Balance 120 1100 Intake: Oral 120 1100 Other: # Voids 3 3 # Bowel Movements 1 Active Medications: Current Medications Acetaminophen (Tylenol) 650 mg PO Q4HR PRN PRN Reason: Mild Pain / Temp above 100 Stop: 03/23/18 17:06 Al Hydrox/Mg Hydrox/Simethicone (Maalox) 30 ml PO Q4HR PRN PRN Reason: GI DISTRESS Stop: 03/23/18 17:06 Donepezil HCl (Aricept) 5 mg PO DAILY MARILYN Stop: 03/24/18 08:59 Last Admin: 02/01/18 10:15 Dose: 5 mg Lactobacillus Rhamnosus (Culturelle 15b) 1 each PO DAILY MARILYN Stop: 03/25/18 13:59 Last Admin: 02/01/18 10:15 Dose: 1 each Lorazepam (Ativan) 0.5 mg PO Q4HR PRN; Protocol PRN Reason: Anxiety Stop: 02/21/18 17:06 Last Admin: 02/01/18 10:14 Dose: 0.5 mg Magnesium Hydroxide (Milk Of Magnesia) 30 ml PO HS PRN PRN Reason: Constipation Miscellaneous (Probiotic Screen) 1 ea MC PRN PRN PRN Reason: PROTOCOL Stop: 03/25/18 12:00 Multivitamins/Vitamin C (Theragran) 1 tab PO DAILY MARILYN Stop: 03/24/18 08:59 Last Admin: 02/01/18 10:15 Dose: Not Given Quetiapine Fumarate (Seroquel) 12.5 mg PO BID MARILYN; Protocol Stop: 03/25/18 08:59 Last Admin: 02/01/18 19:02 Dose: Not Given Zolpidem Tartrate (Ambien) 5 mg PO HS PRN PRN Reason: Insomnia Stop: 03/23/18 17:06 Last Admin: 01/29/18 21:04 Dose: 5 mg General: weak, lethargic, congested, demented HEENT: NC/AT, PERRLA, EOMI, anicteric sclerae, throat clear Neck: No JVD Lungs: CTAB Cardiovascular: RRR Abdomen: soft, non-tender Extremities: clear, edema Neurological: no change Internal Medicine Assmt/Plan - Assessment Assessment: Weakness: fall precaution education. ALOC: on and off; observe. Agitation: better. POOJA: resolving? Failure to thrive: better. Anxiety: close monitoring. Acute psychosis: adjusting meds. UTI: improving. Nutritional Asmnt/Malnutr-PDOC - Dietary Evaluation Malnutrition Findings (Please click <Entered> for more info): Nutritional Asmnt/Malnutrition Start: 01/25/18 15: 04 Text: Status: Complete Freq: Protocol: Document 01/25/18 15:04 LCHENG (Rec: 01/25/18 15:08 LCHENG [email or web address]) Nutritional Asmnt/Malnutrition Patient General Information Diagnosis psychosis Pertinent Medical Hx/Surgical Hx anxiety, depression, alzheimer disease, insomnia, DJD, mild psychosis Subjective Information Pt seen sitting in dinning room eating lunch well. Per EMR, PO intake 50-75%. Current Diet Order/ Nutrition Support regular Pertinent Medications cultruelle, theragran, seroquel Pertinent Labs 01/22 BUN 32 Nutritional Hx/Data Height 1.52 m Height (Calculated Centimeters) 152.4 Current Weight (lbs) 54.431 kg Weight (Calculated Kilograms) 54.4 Weight (Calculated Grams) 26139.1 [place] Body Weight 100 % [place] Body Weight 120 Body Mass Index (BMI) 23.4 Weight Status Approriate GI Symptoms GI Symptoms None Last BM none Difficult in: None Skin Integrity/Comment: intact Estimated Nutritional Goals BEE in Kcals: Using Current wt Calories/Kcals/Kg 25-30 Kcals Calculated 2804-4250 Protein: Using Current wt Protein g/k Protein Calculated 55 Fluid: ml 1375-1650ml (1ml/kcal) Nutritional Problem No current Nutrition Prob Problem N/A Malnutrition Alert Is there a minimum of two criteria No selected? Query Text:Check all the applicable criteria. A minimum of two criteria are recommended for diagnosis of either severe or non-severe malnutrition. Malnutrition Related to Morbid Obesity Malnutrition related to morbid obesity No Intervention/Recommendation Comments 1. Continue with regular diet as ordered. 2. Monitor PO intake, wt, labs and skin integrity 3. F/U as low risk in 7 days, 02/01, PO check 01/29 Expected Outcomes/Goals Expected Outcomes/Goals 1. PO intake to meet at least 75% of nutritional needs. 2. Wt stability, skin to remain intact, labs to approach WNL.
[2018-02-02] MEDS: Multivitamin Tab PO SCH (09:57)
[2018-02-02] MEDS: Lactobacillus Rhamnosus GG 15 Billion CFU CAP.SPRINK PO SCH (09:57)
--- NOTE | 2018-02-02 16:34 | Progress Notes ---
DATE: SUBJECTIVE: Chart reviewed and the patient interviewed. Also discussed the patient's condition with the staff and reviewed records and labs. The patient is still confused. The patient also having difficulty following directions and she is only able to follow simple commands. She also is still yelling and screaming and asking the staff to help her to go to the bathroom and when staff do so she does not want to stay in the bathroom and wants to leave. She also still has difficulty expressing her needs and easily agitated. ASSESSMENT: The patient is still confused and psychotic. TREATMENT PLAN: Continue to monitor her behavior and her condition closely. Also, continue Seroquel and Aricept same dose and will continue to follow up. [facility]# [id number]
--- NOTE | 2018-02-02 20:34 | Progress Notes ---
DATE: 02/02/2018 SUBJECTIVE: Chart reviewed and the patient interviewed. Also, discussed the patient's condition with the staff and reviewed records and labs. The patient seems to be slightly calmer and decreased yelling and screaming, but still has difficulty with her mood and still has episodes of confusion. The patient also still has episodes of yelling and screaming, but seems to be less than before. The patient also is still demanding time and difficulty knowing her needs. She still has been going to the bathroom, but at the same time when she goes there, she does not do anything and wants to go back to her bed. She is slightly easier to redirect her. ASSESSMENT: The patient is slightly improved. TREATMENT PLAN: We will continue Seroquel and Aricept. Also, continue monitoring her behavior and adjusting dose. Also, continue to work on her impulse control and unpredictable behavior. [facility]# [id number]
--- NOTE | 2018-02-02 23:30 | Internal Medicine Prog Note ---
Internal Medicine Subjective - Subjective Service Date: 02/02/18 Patient is:: awake, non-verbal, non-interactive, in bed Patient Complaints of:: congestion Per staff patient has:: no adverse event Internal Medicine Objective - Results Result Diagrams: 01/29/18 07:05 01/31/18 07:49 Recent Labs: Laboratory Last Values WBC 5.3 Th/cmm (4.8-10.8) 01/29/18 07:05 RBC 4.54 Mil/cmm (3.80-5.20) 01/29/18 07:05 Hgb 13.9 gm/dL (12-16) 01/29/18 07:05 Hct 41.2 % (41.0-60) 01/29/18 07:05 MCV 90.7 fl (81-100) 01/29/18 07:05 MCH 30.6 pg (27.0-31.0) 01/29/18 07:05 MCHC Differential 33.7 pg (28.0-36.0) 01/29/18 07:05 RDW 14.8 % (11.5-20.0) 01/29/18 07:05 Plt Count 244 Th/cmm (150-400) 01/29/18 07:05 MPV 8.0 fl 01/29/18 07:05 Neutrophils % 60.4 % (40.0-80.0) 01/29/18 07:05 Lymphocytes % 25.5 % (20.0-50.0) 01/29/18 07:05 Monocytes % 9.5 % (2.0-10.0) 01/29/18 07:05 Eosinophils % 4.1 % (0.0-5.0) 01/29/18 07:05 Basophils % 0.5 % (0.0-2.0) 01/29/18 07:05 Sodium 136 mEq/L (136-145) 01/31/18 07:49 Potassium 4.0 mEq/L (3.5-5.1) 01/31/18 07:49 Chloride 102 mEq/L (98-107) 01/31/18 07:49 Carbon Dioxide 27.9 mEq/L (21.0-31.0) 01/31/18 07:49 Anion Gap 10.1 (7.0-16.0) 01/31/18 07:49 BUN 27 mg/dL (7-25) H 01/31/18 07:49 Creatinine 1.0 mg/dL (0.6-1.2) 01/31/18 07:49 Est GFR ( Amer) TNP 01/31/18 07:49 Est GFR (Non-Af Amer) TNP 01/31/18 07:49 BUN/Creatinine Ratio 27.0 01/31/18 07:49 Glucose 91 mg/dL (70-105) 01/31/18 07:49 Whole Bld Lactic Acid 1.13 mmol/L (0.60-1.99) 01/22/18 12:54 Calcium 9.9 mg/dL (8.6-10.3) 01/31/18 07:49 Total Bilirubin 0.4 mg/dL (0.3-1.0) 01/22/18 12:54 AST 23 U/L (13-39) 01/22/18 12:54 ALT 16 U/L (7-52) 01/22/18 12:54 Alkaline Phosphatase 85 U/L (34-104) 01/22/18 12:54 Troponin I 0.01 ng/mL (0.01-0.05) 01/22/18 12:54 Total Protein 6.4 gm/dL (6.0-8.3) 01/22/18 12:54 Albumin 3.9 gm/dL (3.7-5.3) 01/22/18 12:54 Globulin 2.5 gm/dL 01/22/18 12:54 Albumin/Globulin Ratio 1.6 (1.0-1.8) 01/22/18 12:54 Urine Source RANDOM 01/22/18 14:00 Urine Color STRAW 01/22/18 14:00 Urine Clarity CLOUDY (CLEAR) H 01/22/18 14:00 Urine pH 7.0 (4.6 - 8.0) 01/22/18 14:00 Ur Specific [place] 1.015 (1.005-1.030) 01/22/18 14:00 Urine Protein NEGATIVE mg/dL (NEGATIVE) 01/22/18 14:00 Urine Glucose (UA) NEGATIVE mg/dL (NEGATIVE) 01/22/18 14:00 Urine Ketones NEGATIVE mg/dL (NEGATIVE) 01/22/18 14:00 Urine Blood TRACE (NEGATIVE) 01/22/18 14:00 Urine Nitrate POSITIVE (NEGATIVE) H 01/22/18 14:00 Urine Bilirubin NEGATIVE (NEGATIVE) 01/22/18 14:00 Urine Urobilinogen 0.2 E.U./dL (0.2 - 1.0) 01/22/18 14:00 Ur Leukocyte Esterase NEGATIVE (NEGATIVE) 01/22/18 14:00 Urine RBC 0-2 /hpf (0-5) 01/22/18 14:00 Urine WBC NONE SEEN /hpf (0-5) 01/22/18 14:00 Ur Epithelial Cells NONE SEEN /lpf (FEW) 01/22/18 14:00 Amorphous Sediment MANY PHOSPHATES (NONE SEEN) 01/22/18 14:00 Urine Bacteria MODERATE /hpf (NONE SEEN) H 01/22/18 14:00 - Physical Exam Vitals and I&O: Vital Signs Temp 98.4 F 02/02/18 20:39 Pulse 84 02/02/18 20:39 Resp 19 02/02/18 20:39 BP 110/62 02/02/18 20:39 Pulse Ox 97 02/02/18 20:39 Intake & Output 02/02/18 02/02/18 02/03/18 06:59 18:59 06:59 Intake Total 1450 240 Balance 1450 240 Intake: Oral 1450 240 Other: # Voids 4 1 # Bowel Movements 1 Active Medications: Current Medications Acetaminophen (Tylenol) 650 mg PO Q4HR PRN PRN Reason: Mild Pain / Temp above 100 Stop: 03/23/18 17:06 Al Hydrox/Mg Hydrox/Simethicone (Maalox) 30 ml PO Q4HR PRN PRN Reason: GI DISTRESS Stop: 03/23/18 17:06 Donepezil HCl (Aricept) 5 mg PO DAILY MARILYN Stop: 03/24/18 08:59 Last Admin: 02/02/18 09:59 Dose: 5 mg Lactobacillus Rhamnosus (Culturelle 15b) 1 each PO DAILY MARILYN Stop: 03/25/18 13:59 Last Admin: 02/02/18 09:57 Dose: 1 each Lorazepam (Ativan) 0.5 mg PO Q4HR PRN; Protocol PRN Reason: Anxiety Stop: 02/21/18 17:06 Last Admin: 02/01/18 10:14 Dose: 0.5 mg Magnesium Hydroxide (Milk Of Magnesia) 30 ml PO HS PRN PRN Reason: Constipation Miscellaneous (Probiotic Screen) 1 ea MC PRN PRN PRN Reason: PROTOCOL Stop: 03/25/18 12:00 Multivitamins/Vitamin C (Theragran) 1 tab PO DAILY MARILYN Stop: 03/24/18 08:59 Last Admin: 02/02/18 09:57 Dose: 1 tab Quetiapine Fumarate (Seroquel) 12.5 mg PO BID MARILYN; Protocol Stop: 03/25/18 08:59 Last Admin: 02/02/18 17:29 Dose: 12.5 mg Zolpidem Tartrate (Ambien) 5 mg PO HS PRN PRN Reason: Insomnia Stop: 03/23/18 17:06 Last Admin: 01/29/18 21:04 Dose: 5 mg General: weak, lethargic, congested, demented HEENT: NC/AT, PERRLA, EOMI, anicteric sclerae, throat clear Neck: No JVD Lungs: CTAB Cardiovascular: RRR Abdomen: soft, non-tender Extremities: clear, edema Neurological: no change Internal Medicine Assmt/Plan - Assessment Assessment: ALOC: on and off; observe. Weakness: fall precaution education. Agitation: better. POOJA: resolving? Failure to thrive: better. Anxiety: close monitoring. Acute psychosis: adjusting meds. UTI: improving. Nutritional Asmnt/Malnutr-PDOC - Dietary Evaluation Malnutrition Findings (Please click <Entered> for more info): Nutritional Asmnt/Malnutrition Start: 01/25/18 15: 04 Text: Status: Complete Freq: Protocol: Document 01/25/18 15:04 LCHENG (Rec: 01/25/18 15:08 LCHENG [email or web address]) Nutritional Asmnt/Malnutrition Patient General Information Diagnosis psychosis Pertinent Medical Hx/Surgical Hx anxiety, depression, alzheimer disease, insomnia, DJD, mild psychosis Subjective Information Pt seen sitting in dinning room eating lunch well. Per EMR, PO intake 50-75%. Current Diet Order/ Nutrition Support regular Pertinent Medications cultruelle, theragran, seroquel Pertinent Labs 01/22 BUN 32 Nutritional Hx/Data Height 1.52 m Height (Calculated Centimeters) 152.4 Current Weight (lbs) 54.431 kg Weight (Calculated Kilograms) 54.4 Weight (Calculated Grams) 87737.1 [place] Body Weight 100 % [place] Body Weight 120 Body Mass Index (BMI) 23.4 Weight Status Approriate GI Symptoms GI Symptoms None Last BM none Difficult in: None Skin Integrity/Comment: intact Estimated Nutritional Goals BEE in Kcals: Using Current wt Calories/Kcals/Kg 25-30 Kcals Calculated 8683-2813 Protein: Using Current wt Protein g/k Protein Calculated 55 Fluid: ml 1375-1650ml (1ml/kcal) Nutritional Problem No current Nutrition Prob Problem N/A Malnutrition Alert Is there a minimum of two criteria No selected? Query Text:Check all the applicable criteria. A minimum of two criteria are recommended for diagnosis of either severe or non-severe malnutrition. Malnutrition Related to Morbid Obesity Malnutrition related to morbid obesity No Intervention/Recommendation Comments 1. Continue with regular diet as ordered. 2. Monitor PO intake, wt, labs and skin integrity 3. F/U as low risk in 7 days, 02/01, PO check 01/29 Expected Outcomes/Goals Expected Outcomes/Goals 1. PO intake to meet at least 75% of nutritional needs. 2. Wt stability, skin to remain intact, labs to approach WNL.
[2018-02-03] MEDS: Lactobacillus Rhamnosus GG 15 Billion CFU CAP.SPRINK PO SCH (10:36)
[2018-02-03] MEDS: Multivitamin Tab PO SCH (10:37)
--- NOTE | 2018-02-03 15:24 | Progress Notes ---
DATE: SUBJECTIVE: Chart reviewed and the patient interviewed. Also discussed the patient's condition with the staff and reviewed records and labs. The patient continued to be confused. The patient also is restless and she is still in angry and irritable moods. The patient also needs lots of redirections. She also is still having episodes of yelling and screaming, but seems to be less than before. Otherwise, the patient is compliant with taking her medications with no side effect of medications. ASSESSMENT: The patient is still psychotic and has poor impulse control. TREATMENT PLAN: Continue to monitor her behavior and her condition closely. Also, continue to work on her ineffective coping. Also, working on discharge plans and placement issue. JOB# [id number]
--- NOTE | 2018-02-03 22:12 | Internal Medicine Prog Note ---
Internal Medicine Subjective - Subjective Service Date: 02/03/18 Patient is:: awake, non-verbal, non-interactive, in bed Patient Complaints of:: congestion Per staff patient has:: no adverse event Internal Medicine Objective - Results Result Diagrams: 01/29/18 07:05 01/31/18 07:49 Recent Labs: Laboratory Last Values WBC 5.3 Th/cmm (4.8-10.8) 01/29/18 07:05 RBC 4.54 Mil/cmm (3.80-5.20) 01/29/18 07:05 Hgb 13.9 gm/dL (12-16) 01/29/18 07:05 Hct 41.2 % (41.0-60) 01/29/18 07:05 MCV 90.7 fl (81-100) 01/29/18 07:05 MCH 30.6 pg (27.0-31.0) 01/29/18 07:05 MCHC Differential 33.7 pg (28.0-36.0) 01/29/18 07:05 RDW 14.8 % (11.5-20.0) 01/29/18 07:05 Plt Count 244 Th/cmm (150-400) 01/29/18 07:05 MPV 8.0 fl 01/29/18 07:05 Neutrophils % 60.4 % (40.0-80.0) 01/29/18 07:05 Lymphocytes % 25.5 % (20.0-50.0) 01/29/18 07:05 Monocytes % 9.5 % (2.0-10.0) 01/29/18 07:05 Eosinophils % 4.1 % (0.0-5.0) 01/29/18 07:05 Basophils % 0.5 % (0.0-2.0) 01/29/18 07:05 Sodium 136 mEq/L (136-145) 01/31/18 07:49 Potassium 4.0 mEq/L (3.5-5.1) 01/31/18 07:49 Chloride 102 mEq/L (98-107) 01/31/18 07:49 Carbon Dioxide 27.9 mEq/L (21.0-31.0) 01/31/18 07:49 Anion Gap 10.1 (7.0-16.0) 01/31/18 07:49 BUN 27 mg/dL (7-25) H 01/31/18 07:49 Creatinine 1.0 mg/dL (0.6-1.2) 01/31/18 07:49 Est GFR ( Amer) TNP 01/31/18 07:49 Est GFR (Non-Af Amer) TNP 01/31/18 07:49 BUN/Creatinine Ratio 27.0 01/31/18 07:49 Glucose 91 mg/dL (70-105) 01/31/18 07:49 Whole Bld Lactic Acid 1.13 mmol/L (0.60-1.99) 01/22/18 12:54 Calcium 9.9 mg/dL (8.6-10.3) 01/31/18 07:49 Total Bilirubin 0.4 mg/dL (0.3-1.0) 01/22/18 12:54 AST 23 U/L (13-39) 01/22/18 12:54 ALT 16 U/L (7-52) 01/22/18 12:54 Alkaline Phosphatase 85 U/L (34-104) 01/22/18 12:54 Troponin I 0.01 ng/mL (0.01-0.05) 01/22/18 12:54 Total Protein 6.4 gm/dL (6.0-8.3) 01/22/18 12:54 Albumin 3.9 gm/dL (3.7-5.3) 01/22/18 12:54 Globulin 2.5 gm/dL 01/22/18 12:54 Albumin/Globulin Ratio 1.6 (1.0-1.8) 01/22/18 12:54 Urine Source RANDOM 01/22/18 14:00 Urine Color STRAW 01/22/18 14:00 Urine Clarity CLOUDY (CLEAR) H 01/22/18 14:00 Urine pH 7.0 (4.6 - 8.0) 01/22/18 14:00 Ur Specific [place] 1.015 (1.005-1.030) 01/22/18 14:00 Urine Protein NEGATIVE mg/dL (NEGATIVE) 01/22/18 14:00 Urine Glucose (UA) NEGATIVE mg/dL (NEGATIVE) 01/22/18 14:00 Urine Ketones NEGATIVE mg/dL (NEGATIVE) 01/22/18 14:00 Urine Blood TRACE (NEGATIVE) 01/22/18 14:00 Urine Nitrate POSITIVE (NEGATIVE) H 01/22/18 14:00 Urine Bilirubin NEGATIVE (NEGATIVE) 01/22/18 14:00 Urine Urobilinogen 0.2 E.U./dL (0.2 - 1.0) 01/22/18 14:00 Ur Leukocyte Esterase NEGATIVE (NEGATIVE) 01/22/18 14:00 Urine RBC 0-2 /hpf (0-5) 01/22/18 14:00 Urine WBC NONE SEEN /hpf (0-5) 01/22/18 14:00 Ur Epithelial Cells NONE SEEN /lpf (FEW) 01/22/18 14:00 Amorphous Sediment MANY PHOSPHATES (NONE SEEN) 01/22/18 14:00 Urine Bacteria MODERATE /hpf (NONE SEEN) H 01/22/18 14:00 - Physical Exam Vitals and I&O: Vital Signs Temp 97.1 F 02/03/18 16:23 Pulse 95 02/03/18 16:23 Resp 19 02/03/18 16:23 BP 110/60 02/03/18 16:23 Pulse Ox 95 02/03/18 16:23 Intake & Output 02/03/18 02/03/18 02/04/18 06:59 18:59 06:59 Intake Total 240 1500 Balance 240 1500 Intake: Oral 240 1500 Other: # Voids 1 4 # Bowel Movements 0 Active Medications: Current Medications Acetaminophen (Tylenol) 650 mg PO Q4HR PRN PRN Reason: Mild Pain / Temp above 100 Stop: 03/23/18 17:06 Al Hydrox/Mg Hydrox/Simethicone (Maalox) 30 ml PO Q4HR PRN PRN Reason: GI DISTRESS Stop: 03/23/18 17:06 Donepezil HCl (Aricept) 5 mg PO DAILY MARILYN Stop: 03/24/18 08:59 Last Admin: 02/03/18 10:36 Dose: 5 mg Lactobacillus Rhamnosus (Culturelle 15b) 1 each PO DAILY MARILYN Stop: 03/25/18 13:59 Last Admin: 02/03/18 10:36 Dose: 1 each Lorazepam (Ativan) 0.5 mg PO Q4HR PRN; Protocol PRN Reason: Anxiety Stop: 02/21/18 17:06 Last Admin: 02/01/18 10:14 Dose: 0.5 mg Magnesium Hydroxide (Milk Of Magnesia) 30 ml PO HS PRN PRN Reason: Constipation Miscellaneous (Probiotic Screen) 1 ea MC PRN PRN PRN Reason: PROTOCOL Stop: 03/25/18 12:00 Multivitamins/Vitamin C (Theragran) 1 tab PO DAILY MARILYN Stop: 03/24/18 08:59 Last Admin: 02/03/18 10:37 Dose: 1 tab Quetiapine Fumarate (Seroquel) 12.5 mg PO BID MARILYN; Protocol Stop: 03/25/18 08:59 Last Admin: 02/03/18 17:22 Dose: 12.5 mg Zolpidem Tartrate (Ambien) 5 mg PO HS PRN PRN Reason: Insomnia Stop: 03/23/18 17:06 Last Admin: 01/29/18 21:04 Dose: 5 mg General: weak, lethargic, congested, demented HEENT: NC/AT, PERRLA, EOMI, anicteric sclerae, throat clear Neck: No JVD Lungs: CTAB Cardiovascular: RRR Abdomen: soft, non-tender Extremities: clear, edema Neurological: no change Internal Medicine Assmt/Plan - Assessment Assessment: Noncompliance: education provided. ALOC: on and off; observe. Weakness: fall precaution education. Agitation: better. POOJA: resolving? Failure to thrive: better. Anxiety: close monitoring. Acute psychosis: adjusting meds. UTI: improving. Nutritional Asmnt/Malnutr-PDOC - Dietary Evaluation Malnutrition Findings (Please click <Entered> for more info): Nutritional Asmnt/Malnutrition Start: 01/25/18 15: 04 Text: Status: Complete Freq: Protocol: Document 01/25/18 15:04 LCHENG (Rec: 01/25/18 15:08 [email or web address]) Nutritional Asmnt/Malnutrition Patient General Information Diagnosis psychosis Pertinent Medical Hx/Surgical Hx anxiety, depression, alzheimer disease, insomnia, DJD, mild psychosis Subjective Information Pt seen sitting in dinning room eating lunch well. Per EMR, PO intake 50-75%. Current Diet Order/ Nutrition Support regular Pertinent Medications cultruelle, theragran, seroquel Pertinent Labs 01/22 BUN 32 Nutritional Hx/Data Height 1.52 m Height (Calculated Centimeters) 152.4 Current Weight (lbs) 54.431 kg Weight (Calculated Kilograms) 54.4 Weight (Calculated Grams) 37749.1 [place] Body Weight 100 % [place] Body Weight 120 Body Mass Index (BMI) 23.4 Weight Status Approriate GI Symptoms GI Symptoms None Last BM none Difficult in: None Skin Integrity/Comment: intact Estimated Nutritional Goals BEE in Kcals: Using Current wt Calories/Kcals/Kg 25-30 Kcals Calculated 4165-8599 Protein: Using Current wt Protein g/k Protein Calculated 55 Fluid: ml 1375-1650ml (1ml/kcal) Nutritional Problem No current Nutrition Prob Problem N/A Malnutrition Alert Is there a minimum of two criteria No selected? Query Text:Check all the applicable criteria. A minimum of two criteria are recommended for diagnosis of either severe or non-severe malnutrition. Malnutrition Related to Morbid Obesity Malnutrition related to morbid obesity No Intervention/Recommendation Comments 1. Continue with regular diet as ordered. 2. Monitor PO intake, wt, labs and skin integrity 3. F/U as low risk in 7 days, 02/01, PO check 01/29 Expected Outcomes/Goals Expected Outcomes/Goals 1. PO intake to meet at least 75% of nutritional needs. 2. Wt stability, skin to remain intact, labs to approach WNL.
[2018-02-04] MEDS: Multivitamin Tab PO SCH (10:08)
[2018-02-04] MEDS: Lactobacillus Rhamnosus GG 15 Billion CFU CAP.SPRINK PO SCH (10:08)
--- NOTE | 2018-02-04 23:20 | Internal Medicine Prog Note ---
Internal Medicine Subjective - Subjective Service Date: 02/04/18 Patient seen and examined:: without staff Patient is:: awake, non-verbal, non-interactive, in bed Patient Complaints of:: congestion Per staff patient has:: no adverse event Internal Medicine Objective - Results Result Diagrams: 01/29/18 07:05 01/31/18 07:49 Recent Labs: Laboratory Last Values WBC 5.3 Th/cmm (4.8-10.8) 01/29/18 07:05 RBC 4.54 Mil/cmm (3.80-5.20) 01/29/18 07:05 Hgb 13.9 gm/dL (12-16) 01/29/18 07:05 Hct 41.2 % (41.0-60) 01/29/18 07:05 MCV 90.7 fl (81-100) 01/29/18 07:05 MCH 30.6 pg (27.0-31.0) 01/29/18 07:05 MCHC Differential 33.7 pg (28.0-36.0) 01/29/18 07:05 RDW 14.8 % (11.5-20.0) 01/29/18 07:05 Plt Count 244 Th/cmm (150-400) 01/29/18 07:05 MPV 8.0 fl 01/29/18 07:05 Neutrophils % 60.4 % (40.0-80.0) 01/29/18 07:05 Lymphocytes % 25.5 % (20.0-50.0) 01/29/18 07:05 Monocytes % 9.5 % (2.0-10.0) 01/29/18 07:05 Eosinophils % 4.1 % (0.0-5.0) 01/29/18 07:05 Basophils % 0.5 % (0.0-2.0) 01/29/18 07:05 Sodium 136 mEq/L (136-145) 01/31/18 07:49 Potassium 4.0 mEq/L (3.5-5.1) 01/31/18 07:49 Chloride 102 mEq/L (98-107) 01/31/18 07:49 Carbon Dioxide 27.9 mEq/L (21.0-31.0) 01/31/18 07:49 Anion Gap 10.1 (7.0-16.0) 01/31/18 07:49 BUN 27 mg/dL (7-25) H 01/31/18 07:49 Creatinine 1.0 mg/dL (0.6-1.2) 01/31/18 07:49 Est GFR ( Amer) TNP 01/31/18 07:49 Est GFR (Non-Af Amer) TNP 01/31/18 07:49 BUN/Creatinine Ratio 27.0 01/31/18 07:49 Glucose 91 mg/dL (70-105) 01/31/18 07:49 Whole Bld Lactic Acid 1.13 mmol/L (0.60-1.99) 01/22/18 12:54 Calcium 9.9 mg/dL (8.6-10.3) 01/31/18 07:49 Total Bilirubin 0.4 mg/dL (0.3-1.0) 01/22/18 12:54 AST 23 U/L (13-39) 01/22/18 12:54 ALT 16 U/L (7-52) 01/22/18 12:54 Alkaline Phosphatase 85 U/L (34-104) 01/22/18 12:54 Troponin I 0.01 ng/mL (0.01-0.05) 01/22/18 12:54 Total Protein 6.4 gm/dL (6.0-8.3) 01/22/18 12:54 Albumin 3.9 gm/dL (3.7-5.3) 01/22/18 12:54 Globulin 2.5 gm/dL 01/22/18 12:54 Albumin/Globulin Ratio 1.6 (1.0-1.8) 01/22/18 12:54 Urine Source RANDOM 01/22/18 14:00 Urine Color STRAW 01/22/18 14:00 Urine Clarity CLOUDY (CLEAR) H 01/22/18 14:00 Urine pH 7.0 (4.6 - 8.0) 01/22/18 14:00 Ur Specific [place] 1.015 (1.005-1.030) 01/22/18 14:00 Urine Protein NEGATIVE mg/dL (NEGATIVE) 01/22/18 14:00 Urine Glucose (UA) NEGATIVE mg/dL (NEGATIVE) 01/22/18 14:00 Urine Ketones NEGATIVE mg/dL (NEGATIVE) 01/22/18 14:00 Urine Blood TRACE (NEGATIVE) 01/22/18 14:00 Urine Nitrate POSITIVE (NEGATIVE) H 01/22/18 14:00 Urine Bilirubin NEGATIVE (NEGATIVE) 01/22/18 14:00 Urine Urobilinogen 0.2 E.U./dL (0.2 - 1.0) 01/22/18 14:00 Ur Leukocyte Esterase NEGATIVE (NEGATIVE) 01/22/18 14:00 Urine RBC 0-2 /hpf (0-5) 01/22/18 14:00 Urine WBC NONE SEEN /hpf (0-5) 01/22/18 14:00 Ur Epithelial Cells NONE SEEN /lpf (FEW) 01/22/18 14:00 Amorphous Sediment MANY PHOSPHATES (NONE SEEN) 01/22/18 14:00 Urine Bacteria MODERATE /hpf (NONE SEEN) H 01/22/18 14:00 - Physical Exam Vitals and I&O: Vital Signs Temp 97.8 F 02/04/18 20:00 Pulse 80 02/04/18 20:00 Resp 18 02/04/18 20:00 BP 133/76 02/04/18 20:00 Pulse Ox 96 02/04/18 20:00 Intake & Output 02/04/18 02/04/18 02/05/18 06:59 18:59 06:59 Intake Total 120 800 Output Total 0 Balance 120 800 Intake: Oral 120 800 Output: Urine 0 Other: # Voids 3 # Bowel Movements 0 Active Medications: Current Medications Acetaminophen (Tylenol) 650 mg PO Q4HR PRN PRN Reason: Mild Pain / Temp above 100 Stop: 03/23/18 17:06 Al Hydrox/Mg Hydrox/Simethicone (Maalox) 30 ml PO Q4HR PRN PRN Reason: GI DISTRESS Stop: 03/23/18 17:06 Donepezil HCl (Aricept) 5 mg PO DAILY MARILYN Stop: 03/24/18 08:59 Last Admin: 02/04/18 10:08 Dose: 5 mg Lactobacillus Rhamnosus (Culturelle 15b) 1 each PO DAILY MARILYN Stop: 03/25/18 13:59 Last Admin: 02/04/18 10:08 Dose: 1 each Lorazepam (Ativan) 0.5 mg PO Q4HR PRN; Protocol PRN Reason: Anxiety Stop: 02/21/18 17:06 Last Admin: 02/01/18 10:14 Dose: 0.5 mg Magnesium Hydroxide (Milk Of Magnesia) 30 ml PO HS PRN PRN Reason: Constipation Miscellaneous (Probiotic Screen) 1 ea MC PRN PRN PRN Reason: PROTOCOL Stop: 03/25/18 12:00 Multivitamins/Vitamin C (Theragran) 1 tab PO DAILY MARILYN Stop: 03/24/18 08:59 Last Admin: 02/04/18 10:08 Dose: 1 tab Quetiapine Fumarate (Seroquel) 12.5 mg PO BID MARILYN; Protocol Stop: 03/25/18 08:59 Last Admin: 02/04/18 17:55 Dose: 12.5 mg Zolpidem Tartrate (Ambien) 5 mg PO HS PRN PRN Reason: Insomnia Stop: 03/23/18 17:06 Last Admin: 01/29/18 21:04 Dose: 5 mg General: weak, lethargic, congested, demented HEENT: NC/AT, PERRLA, EOMI, anicteric sclerae, throat clear Neck: No JVD Lungs: CTAB Cardiovascular: RRR Abdomen: soft, non-tender Extremities: clear, edema Neurological: no change Internal Medicine Assmt/Plan - Assessment Assessment: ALOC: on and off; observe. Weakness: fall precaution education. Noncompliance: education provided. Agitation: better. POOJA: resolving? Failure to thrive: better. Anxiety: close monitoring. Acute psychosis: adjusting meds. UTI: improving. Nutritional Asmnt/Malnutr-PDOC - Dietary Evaluation Malnutrition Findings (Please click <Entered> for more info): Nutritional Asmnt/Malnutrition Start: 01/25/18 15: 04 Text: Status: Complete Freq: Protocol: Document 01/25/18 15:04 LCHENG (Rec: 01/25/18 15:08 LCHENG [email or web address]) Nutritional Asmnt/Malnutrition Patient General Information Diagnosis psychosis Pertinent Medical Hx/Surgical Hx anxiety, depression, alzheimer disease, insomnia, DJD, mild psychosis Subjective Information Pt seen sitting in dinning room eating lunch well. Per EMR, PO intake 50-75%. Current Diet Order/ Nutrition Support regular Pertinent Medications cultruelle, theragran, seroquel Pertinent Labs 01/22 BUN 32 Nutritional Hx/Data Height 1.52 m Height (Calculated Centimeters) 152.4 Current Weight (lbs) 54.431 kg Weight (Calculated Kilograms) 54.4 Weight (Calculated Grams) 43331.1 [place] Body Weight 100 % [place] Body Weight 120 Body Mass Index (BMI) 23.4 Weight Status Approriate GI Symptoms GI Symptoms None Last BM none Difficult in: None Skin Integrity/Comment: intact Estimated Nutritional Goals BEE in Kcals: Using Current wt Calories/Kcals/Kg 25-30 Kcals Calculated 0069-0959 Protein: Using Current wt Protein g/k Protein Calculated 55 Fluid: ml 1375-1650ml (1ml/kcal) Nutritional Problem No current Nutrition Prob Problem N/A Malnutrition Alert Is there a minimum of two criteria No selected? Query Text:Check all the applicable criteria. A minimum of two criteria are recommended for diagnosis of either severe or non-severe malnutrition. Malnutrition Related to Morbid Obesity Malnutrition related to morbid obesity No Intervention/Recommendation Comments 1. Continue with regular diet as ordered. 2. Monitor PO intake, wt, labs and skin integrity 3. F/U as low risk in 7 days, 02/01, PO check 01/29 Expected Outcomes/Goals Expected Outcomes/Goals 1. PO intake to meet at least 75% of nutritional needs. 2. Wt stability, skin to remain intact, labs to approach WNL.
--- NOTE | 2018-02-04 23:53 | Progress Notes ---
DATE: 02/04/2018 SUBJECTIVE: Chart reviewed and the patient interviewed. Also, discussed the patient's condition with the staff and reviewed records and labs. The patient is still confused. The patient also still has disorganized thoughts. She is also actively responding to stimuli and she is still talking to herself. The patient also is restless, anxious and easily agitated. Otherwise, the patient is compliant with taking her medications with no side effect of medications. ASSESSMENT: The patient is still confused. TREATMENT PLAN: Continue to monitor her behavior and her condition closely. Also, continue adjusting psychotropic medications and continue to follow up. [facility]# [id number]
[2018-02-05 09:03] LABS: % BASOPHILS 0.6 % (0.0-2.0); % LYMPHOCYTES 16.5 % (20.0-50.0); % MONOCYTES 5.6 % (2.0-10.0); % NEUTROPHILS 74.3 % (40.0-80.0); EOSINOPHILE ABSOLUTE 0.2 Th/cmm (0.1-0.4); HEMATOCRIT 40.4 % (41.0-60); HEMOGLOBIN 13.3 gm/dL (12-16); LYMPHOCYTE ABSOLUTE 0.9 Th/cmm (1.5-3.0); MEAN CELL VOLUME 91.4 fl (81-100); MEAN CORPUSCULAR HEMOGLOBIN 30.1 pg (27.0-31.0); MEAN PLATELET VOLUME 8.1 fl; MONOCYTE ABSOLUTE 0.3 Th/cmm (0.3-1.0); NEUTROPHILE ABSOLUTE 4.1 Th/cmm (1.8-8.0); PLATELET COUNT 186 Th/cmm (150-400); RED BLOOD COUNT 4.42 Mil/cmm (3.80-5.20); RED CELL DISTRIBUTION WIDTH 14.6 % (11.5-20.0); WHITE BLOOD COUNT 5.5 Th/cmm (4.8-10.8)
[2018-02-05 09:17] LABS: BUN - UREA NITROGEN 25 mg/dL (7-25); CALCIUM SERUM 9.1 mg/dL (8.6-10.3); CARBON DIOXIDE 27.6 mEq/L (21.0-31.0); CHLORIDE 102 mEq/L (98-107); CREATININE - SERUM 0.9 mg/dL (0.6-1.2); GLUCOSE 124 mg/dL (70-105); POTASSIUM SERUM 3.6 mEq/L (3.5-5.1); SODIUM SERUM 136 mEq/L (136-145)
[2018-02-05] MEDS: Lactobacillus Rhamnosus GG 15 Billion CFU CAP.SPRINK PO SCH (09:52)
[2018-02-05] MEDS: Multivitamin Tab PO SCH (09:53)
--- NOTE | 2018-02-06 00:26 | Discharge Summary ---
DATE OF DISCHARGE: 02/05/2018 FINAL DIAGNOSIS AND PRIMARY DIAGNOSIS: Unspecified psychosis. SECONDARY DIAGNOSIS: Dementia, moderate to severe, with psychotic features. REASON FOR HOSPITALIZATION: The patient was admitted to the hospital because of altered level of conscious and confusion. HOSPITAL COURSE: The patient was confused and agitated. She was also continued to be forgetful and needed lots of redirections. She also had episodes of ____ the patient was compliant with taking medications. The patient continued to take Aricept 5 mg everyday and Seroquel and the dose was adjusted to 12.5 mg twice a day. The patient was calmer and she was less irritable and less agitated. The patient was discharged back to [place]. Physical exam of the patient showed no major medical problems. Also, no major abnormal labs while in the hospital. AFTER DISCHARGE PLANS: The patient discharged from the hospital and returning to [place] with plan for outpatient treatment there. EXPECTED OUTCOME AFTER DISCHARGE: Fair if the patient continues with taking her medications with outpatient treatment. [facility]# [id number]
--- NOTE | 2018-02-06 02:37 | Discharge Summary ---
DATE OF DISCHARGE: 02/05/2018 FINAL DIAGNOSES: 1. Altered level of consciousness, improved. 2. Failure to thrive, improved. 3. Agitation, improved. 4. Acute psychosis, significantly improved. 5. Weakness, improved. 6. Noncompliance with education provided and improved. 7. Urinary tract infection, treated. HOSPITAL COURSE: The patient is an 87-year-old female admitted due to altered level of consciousness due to agitation with acute psychosis, and urinary tract infection, etc. Psychiatrist consultation requested and greatly appreciated. The patient was admitted to [facility] unit. Her overall condition improved during hospitalization and [facility] DISCHARGE CONDITION: Stable. DISPOSITION: [place] . DISCHARGE MEDICATIONS: Continue medications from here. DIET: Cardiac, soft diet. ACTIVITY: Up as tolerated. FOLLOWUP: One week. JOB# [id number]
== END 2018-02-05 15:30 | DRG 885 ==
LOC: ER 11:12 → GERO2 16:15 → GERO 01-23 08:53
PROVIDERS: ADMIT Psychiatry & Neurology Psychiatry; ATTEND Psychiatry & Neurology Psychiatry
DX: F23 Brief psychotic disorder (principal); F02.81 Dementia in other diseases classified elsewhere, unspecified severity, with behavioral disturbance; N17.9 Acute kidney failure, unspecified; G93.41 Metabolic encephalopathy; N39.0 Urinary tract infection, site not specified; R62.7 Adult failure to thrive; K21.9 Gastro-esophageal reflux disease without esophagitis; R53.1 Weakness; G30.9 Alzheimer's disease, unspecified; F41.9 Anxiety disorder, unspecified; Z91.14 Patient's other noncompliance with medication regimen
CPT/HCPCS: 36415-UA; 80048-TC; 80053-TC; 81001-TC; 83605; 84484-TC; 85025-TC; 87086-90; G0410; J0696; J1200; J1630; J2060; J7030; Z7610